=== PATIENT | male | born 1970 | race African-American/Black ===

== ENCOUNTER 2018-08-03 16:46 | Emergency (ER) | payer MEDICAID ==
[~2018-08-03] VITALS: Ht 190.5 cm; Wt 97.5 kg
[2018-08-03 16:53] VITALS: BP_SYST 146
[2018-08-03 18:40] VITALS: BP_SYST 146
== END 2018-08-03 18:40 | disposition home or self-care (01) ==
LOC: SED 16:46
DX: J06.9 Acute upper respiratory infection, unspecified (principal); F12.90 Cannabis use, unspecified, uncomplicated; I10 Essential (primary) hypertension; Z88.1 Allergy status to other antibiotic agents
CPT/HCPCS: 71045; 99283

== ENCOUNTER 2018-11-03 09:35 | Emergency (ER) | payer MEDICAID ==
[~2018-11-03] VITALS: Ht 190.5 cm; Wt 99.8 kg
[2018-11-03 09:40] VITALS: BP_SYST 135
--- NOTE | 2018-11-03 09:48 | NUR ---
Patient to ER bed 3 to gown for evaluation. Side rails up. Report given to Lul ROYAL.
--- NOTE | 2018-11-03 09:50 | NUR ---
Patient is awake, alert, and oriented x4. Patient is complaining of headache since yesterday, reports sharp headache 8/10. He reports left rotator cuff repair, glaucoma, hypertension, occasional marijuana use, drinks alcohol on the weekends.
--- NOTE | 2018-11-03 10:09 | NUR ---
ER at bedside examining patient.
[2018-11-03] MEDS ORDERED: PROCHLORPERAZINE EDISYLATE 10 MG/2 ML VIAL IVP ONE (10:15)
[2018-11-03] MEDS ORDERED: DIPHENHYDRAMINE INJ 50 MG/ML VIAL IVP ONE (10:15)
[2018-11-03] MEDS ORDERED: KETOROLAC TROMETHAMINE 30 MG VIAL IVP ONE (10:15)
[2018-11-03] MEDS ORDERED: NACL 0.9% 1,000 ML IV ONE (10:30)
[2018-11-03] MEDS ORDERED: MORPHINE 4 MG/ML INJ. SYRINGE IVP ONE (11:00)
--- NOTE | 2018-11-03 11:08 | NUR ---
Report given to LELE Mendoza for continuation of care.
--- NOTE | 2018-11-03 11:17 | NUR ---
Pt resting comfortably in bed. Pt refuses Morphine at the moment, states "I want to wait when my pain is higher. Pain level 5.
[2018-11-03 12:46] VITALS: BP_SYST 124
--- NOTE | 2018-11-03 12:46 | NUR ---
Patient given written and verbal discharge instructions and verbalizes understanding. ER MD Farmer discussed with patient the results and treatment provided. Patient in stable condition. ID arm band removed. IV catheter removed intact and dressing applied, no active bleeding. Rx of Tylenol with Codeine, Zofran given. Patient educated on pain management and to follow up with PMD. Pain Scale 0. Opportunity for questions provided and answered. Medication side effect fact sheet provided.
== END 2018-11-03 12:46 | disposition home or self-care (01) ==
LOC: SED 09:35
DX: G43.009 Migraine without aura, not intractable, without status migrainosus (principal); I10 Essential (primary) hypertension; Z88.1 Allergy status to other antibiotic agents
CPT/HCPCS: 96361; 96374; 96375; 99283; J0780; J1200; J1885; J2270; J7030